=== PATIENT | female | born 2000 | race Caucasian/White ===

== ENCOUNTER 2018-10-17 16:58 | Emergency (ER) | payer BC ==
[2018-10-17 18:00] VITALS: BP 122/68
--- NOTE | 2018-10-17 20:17 | UC ---
Complaint Male HPI - HPI Summary HPI Summary: Per technical research scientist: "Vaginal discharge is white, clumpy, malodorous noticed yesterday , vulvar itching. Pt had vague symptons 5-6 days ago; changed OC recently. Incidental: pt pain level is 5/10; pt states it is return of her usual intermittent chest pain about which PCP is aware and is treating pt for " - History of Current Complaint Chief Complaint: UCGU Stated Complaint: PERSONAL Time Seen by Provider: 10/17/18 20:08 Pain Intensity: 5 - Allergies/Home Medications Allergies/Adverse Reactions: Allergies Allergy/AdvReac Type Severity Reaction Status Date / Time No Known Allergies Allergy Verified 10/17/18 17:47 Home Medications: Home Medications Antidepressant For Migraines 1 tab PO QPM 10/17/18 [History Confirmed 10/17/18] O C 1 tab PO QPM 10/17/18 [History Confirmed 10/17/18] Omeprazole 20 mg PO DAILY 10/17/18 [History Confirmed 10/17/18] PMH/Surg Hx/FS Hx/Imm Hx Previously Healthy: Yes - Surgical History Surgical History: None - Family History Known Family History: Positive: Hypertension - Social History Alcohol Use: Occasionally Substance Use Type: None Smoking Status (MU): Never Smoked Tobacco Review of Systems All Other Systems Reviewed And Are Negative: Yes Constitutional: Positive: Negative Skin: Positive: Negative Eyes: Positive: Negative ENT: Positive: Negative Respiratory: Positive: Negative Cardiovascular: Positive: Chest Pain - per PCP, chronic Gastrointestinal: Positive: Negative Genitourinary: Positive: Vaginal/Penile Itching, Vaginal/Penile Discharge. Negative: Dysuria, Hematuria, Ulceration/Lesion Motor: Positive: Negative Neurovascular: Positive: Negative Musculoskeletal: Positive: Negative Neurological: Positive: Negative Psychological: Positive: Negative Is Patient Immunocompromised?: No Physical Exam Triage Information Reviewed: Yes Appearance: Well-Appearing, Well-Nourished - very pleasant, reliable historian Vital Signs: Initial Vital Signs Temp 98.1 F 10/17/18 17:52 Pulse 86 10/17/18 17:52 Resp 18 10/17/18 17:52 BP 122/68 10/17/18 17:52 Pulse Ox 100 10/17/18 17:52 Vital Signs Reviewed: Yes Eye Exam: Normal ENT Exam: Normal Respiratory Exam: Normal Respiratory: Positive: Lungs clear Cardiovascular Exam: Normal Cardiovascular: Positive: RRR, Brisk Capillary Refill Abdominal Exam: Normal Abdomen Description: Positive: Nontender, Soft Musculoskeletal Exam: Normal Neurological Exam: Normal Psychological Exam: Normal Skin Exam: Normal Complaint Male Course/Dx - Course Course Of Treatment: -oral diflcucam -FU w/ PCP re other sx that have not changed/ - Differential Dx/Diagnosis Differential Diagnosis/HQI/PQRI: Other - candidiasis Provider Diagnosis: Candidiasis Discharge - Sign-Out/Discharge Documenting (check all that apply): Patient Departure All imaging exams completed and their final reports reviewed: No Studies - Discharge Plan Condition: Stable Disposition: HOME Prescriptions: Fluconazole [Diflucan] 150 mg PO ONCE #1 tab Patient Education Materials: Yeast Infection (ED) Referrals: No Primary Care Phys,NOPCP [Primary Care Provider] - Additional Instructions: -If your symptoms don't improve/resolve in the next few days, you should follow up with your [facility]. You can also use OTC monistat to help soothe your symptoms. -we talked about the importance of taking the progesterone only BCP at the same time every day to help control the bleeding irregularity. Being on combined estrogen pills is contraindicated with migraines as you already are aware of. - Billing Disposition and Condition Condition: STABLE Disposition: Home
== END 2018-10-17 20:26 | disposition home or self-care (01) ==
LOC: UCCORT 16:58
DX: B37.3 Candidiasis of vulva and vagina (principal)
CPT/HCPCS: 81003; 84702; 99202; G0463